=== PATIENT | female | born 1985 | race Caucasian/White ===

== ENCOUNTER 2018-05-14 21:23 | Emergency (ER) | payer OTHER ==
[~2018-05-14] VITALS: Ht 172.7 cm; Wt 86.4 kg
[~2018-05-14 21:23] MED LIST: DENIES MEDS
[2018-05-14 21:56] VITALS: Ht 172.7 cm; Wt 86.4 kg
[2018-05-15] MEDS ORDERED: SOD CHLORIDE 0.9% 1,000 ML IV STA (00:20)
[2018-05-15] MEDS ORDERED: ONDANSETRON 4 MG INJ IV STA (00:20)
[2018-05-15] MEDS ORDERED: morphine 2 MG INJ IV STA (00:20)
--- NOTE | 2018-05-15 01:13 | ERD ---
ER Documentation Chief Complaint Chief Complaint HERNIA PAIN 11/28 ROS All systems reviewed and are negative except as per history of present illness. Medications Home Meds Active Scripts Ranitidine Hcl* (Zantac*) 150 Mg Tablet, 150 MG PO BID PRN for EPIGASTRIC PAIN, #10 TAB Prov:EDILBERTO REYES MD 05/15/18 Acetaminophen* (Tylenol*) 325 Mg Tablet, 2 TAB PO Q8 PRN for PAIN AND OR ELEVATED TEMP, #20 TAB Prov:EDILBERTO REYES MD 05/15/18 Ciprofloxacin Hcl* (Ciprofloxacin Hcl*) 250 Mg Tablet, 250 MG PO BID for 7 Days, #14 TAB Prov:EDILBERTO REYES MD 05/15/18 Reported Medications [Denies Meds] No Conflict Check 06/20/10 Allergies Allergies: Coded Allergies: No Known Allergy (Verified , 06/20/10) PMhx/Soc History of Surgery: Yes ( x three; recent 03/16/12) Anesthesia Reaction: No Hx Neurological Disorder: No Hx Respiratory Disorders: No Hx Cardiac Disorders: No Hx Psychiatric Problems: No Hx Miscellaneous Medical Probl: Yes (ectopic; miscarriage) Hx Alcohol Use: No Hx Substance Use: No Hx Tobacco Use: No Smoking Status: Never smoker Physical Exam Vitals Vital Signs Date Temp Pulse Resp B/P (MAP) Pulse Ox O2 O2 Flow FiO2 Time Delivery Rate 05/15/18 98.1 79 18 109/63 98 Room Air 04:11 (78) 05/14/18 98.3 82 20 134/86 100 21:56 (102) Physical Exam Const: No acute distress Head: Atraumatic Eyes: Normal Conjunctiva ENT: Normal External Ears, Nose and Mouth. Neck: Full range of motion. No meningismus. Resp: Clear to auscultation bilaterally Cardio: Regular rate and rhythm, no murmurs Abd: Soft, non tender, non distended. Normal bowel sounds Skin: No petechiae or rashes Back: No midline or flank tenderness Ext: No cyanosis, or edema Neur: Awake and alert Psych: Normal Mood and Affect Result Diagram: 05/15/18 0027 05/15/18 0027 Results 24 hrs Laboratory Tests Test 05/15/18 00:27 05/15/18 02:06 05/15/18 02:08 White Blood Count 14.0 10^3/ul Red Blood Count 4.64 10^6/ul Hemoglobin 12.3 g/dl Hematocrit 38.8 % Mean Corpuscular Volume 83.6 fl Mean Corpuscular Hemoglobin 26.5 pg Mean Corpuscular 31.7 g/dl Hemoglobin Concent Red Cell Distribution Width 16.2 % Platelet Count 248 10^3/UL Mean Platelet Volume 12.5 fl Immature Granulocytes % 0.400 % Neutrophils % 82.6 % Lymphocytes % 11.2 % Monocytes % 5.2 % Eosinophils % 0.4 % Basophils % 0.2 % Nucleated Red Blood Cells % 0.0 /100WBC Immature Granulocytes # 0.060 10^3/ul Neutrophils # 11.5 10^3/ul Lymphocytes # 1.6 10^3/ul Monocytes # 0.7 10^3/ul Eosinophils # 0.1 10^3/ul Basophils # 0.0 10^3/ul Nucleated Red Blood Cells # 0.0 10^3/ul Sodium Level 139 mmol/L Potassium Level 3.5 mmol/L Chloride Level 99 mmol/L Carbon Dioxide Level 27 mmol/L Anion Gap 13 Blood Urea Nitrogen 8 mg/dl Creatinine 0.45 mg/dl Est Glomerular Filtrat Rate mL/min > 60 mL/min Glucose Level 141 mg/dl Calcium Level 9.5 mg/dl Total Bilirubin 0.3 mg/dl Direct Bilirubin 0.00 mg/dl Indirect Bilirubin 0.3 mg/dl Aspartate Amino Transf (AST/SGOT) 13 IU/L Alanine 14 IU/L Aminotransferase (ALT/SGPT) Alkaline Phosphatase 69 IU/L Total Protein 7.4 g/dl Albumin 4.3 g/dl Globulin 3.10 g/dl Albumin/Globulin Ratio 1.38 Lipase 42 U/L Bedside Urine pH (LAB) 7.5 Bedside Urine Protein (LAB) Negative Bedside Urine Glucose (UA) Negative Bedside Urine Ketones (LAB) Negative Bedside Urine Blood Negative Bedside Urine Nitrite (LAB) Positive Bedside Urine Leukocyte Esterase 1+ (L POC Beta HCG, Qualitative NEGATIVE Current Medications Medications Dose Sig/Christine Start Time Status Last (Trade) Ordered Route PRN Stop Time Admin Dose Reason Admin Sodium 1,000 ml @ Q1H STAT 05/15/18 DC 05/15/18 Chloride 1,000 mls/hr IV 00:20 00:31 05/15/18 01:19 Morphine 2 mg ONCE STAT 05/15/18 DC 05/15/18 Sulfate IV 00:20 00:31 (morphine) 05/15/18 00:22 Ondansetron 4 mg ONCE STAT 05/15/18 DC 05/15/18 HCl (Zofran IV 00:20 00:31 Inj) 05/15/18 00:22 Piperacillin 100 ml @ ONCE ONCE 05/15/18 DC 05/15/18 Sod/ 200 mls/hr IVPB 03:30 03:35 Tazobactam 05/15/18 03:59 Sod 2 tab ONCE ONCE 05/15/18 05/15/18 Acetaminophen PO 04:30 04:25 / 05/15/18 04:31 Hydrocodone Bitart ([place] (5/325)) Patient: PETERSON AREVALO : 1985 Age: 32 Sex: F MR #: [id number] DOS: 05/15/18 0020 Ordering MD: EDILBERTO REYES MD Location: [facility] Room/Bed: PROCEDURE: CT Abdomen and Pelvis without contrast. CLINICAL INDICATION: Abdominal pain. TECHNIQUE: Unenhanced CT scan of the abdomen and pelvis was performed on a multi-detector high-resolution CT scanner. Coronal and sagittal reformatted images were obtained from the axial source images. Images were reviewed on a high-resolution PACS workstation. The total exam CTDI equals 14.4 mGy and the total exam DLP equals 909.3 mGy-cm. DICOM images are available. One or more of the following dose reduction techniques were utilized: 1.) Automated exposure control 2.) Adjustment of the mA +/- kV according to patient's size 3.) Use of iterative reconstruction technique. COMPARISON: Abdominal and pelvic ultrasound exams 01/25/2018. FINDINGS: Evaluation of the soft tissues and viscera is limited in the absence of contrast. Partially visualized mild bibasilar pulmonary subsegmental atelectasis with calcified granuloma in the basilar lingula. Heart base appears normal. Systemic vasculature appears grossly normal. No pathologic lymphadenopathy identified by imaging criteria. Prominent right lower quadrant mesenteric lymph nodes measure up to 9 mm short axis (axial image 103), most likely reactive. Liver demonstrates normal size and contour, without identifiable focal mass lesion in the absence of intravenous contrast. Chronic post cholecystectomy changes without identifiable extrahepatic biliary ductal dilatation. Pancreas demonstrates normal contour, without identifiable peripancreatic inflammatory change. Spleen is normal in size. Adrenal glands appear normal. The stomach is moderately distended with heterogeneous contents, which may be physiologic related to recent ingestion or could reflect gastric outlet obstruction or gastroparesis. Mild dilatation of a few loops of distal ileum measuring up to 3.4 cm diameter in the ventral abdomen (axial image 73, coronal image 31) with transition point associated with segmental moderate wall thickening of the terminal ileum in the presence of mild - moderate associated mesenteric edema with mild free fluid layering in the adjacent mesenteries, bilateral pericolic gutters, the pelvis and a small fatty inferior ventral abdominal hernia. The appendix is nondilated. Multiple scattered left colonic diverticuli without evidence of acute diverticulitis. Kidneys demonstrate normal size, contour and orientation without identifiable focal mass lesion in the absence of intravenous contrast. No nephrolithiasis nor hydronephrosis. The ureters run unobstructed to an incompletely distended urinary bladder which is not well evaluated on today's exam, with suggestion of mild diffuse wall thickening which may reflect cystitis. The uterus appears age appropriate, containing a small amount of endometrial fluid. No pathologic adnexal mass identified in the absence of contrast. Osseous structures are intact with anatomic variant transitional lumbosacral anatomy with 6 non-rib bearing lumbar type vertebrae and presumed complete lumbarization of the S1 vertebra. Focally advanced spondylotic changes at L5-S1 contribute to effacement of bilateral subarticular recesses with moderate - severe bilateral neural foraminal stenosis, worse on the right, suboptimally evaluated by CT. Healed low transverse laparotomy wound. IMPRESSION: 1. Terminal ileitis, which may be infectious or inflammatory in etiology, with associated small bowel obstruction versus reactive ileus. 2. Moderate gastric distension may be physiologic related to recent ingestion or could reflect gastric outlet obstruction or gastroparesis. 3. Suggestion of mild diffuse urinary bladder wall thickening, which may be artifactual related to incomplete distension or could reflect cystitis. 4. No nephrolithiasis nor hydronephrosis. 5. Prominent right lower quadrant mesenteric lymph nodes which are most likely reactive. 6. Focally advanced spondylotic changes at the presumed L5 the S1 level contribute to effacement of bilateral subarticular recesses with moderate - severe bilateral neural foraminal stenosis, worse on the right. This can be better evaluated by MRI L-spine if clinically warranted. 7. Anatomic variant transitional lumbosacral anatomy with 6 non-rib bearing lumbar type vertebrae, presumed secondary to complete lumbarization of the S1 vertebra. If spinal surgery is to be performed, careful correlation for level with intraoperative plain films is recommended. RPTAT: HSAN Physician [place] Date Time Electronically viewed and signed by Cee Rangel Physician on 05/15/2018 03:15 Departure Diagnosis: Primary Impression: UTI (urinary tract infection) Additional Impression: Colitis Condition: Stable Additional Instructions: Thank you very much for allowing us to participate in your care. Your health and safety is our top priority at [facility]. Call your primary care doctor TOMORROW for an appointment during the next 2-4 days and bring all the information and medications prescribed. Have prescriptions filled and follow precisely the directions on the label. If the symptoms get worse and your provider is unavailable, return to the Emergency Department immediately. EDILBERTO REYES MD May 15, 2018 01:13
[2018-05-15] MEDS ORDERED: PIPER-TAZO 3.375 GM IV (PMX) 100 ML IVPB ONE (03:30)
[2018-05-15] MEDS ORDERED: CIPR-193 PO (03:57)
[2018-05-15] MEDS ORDERED: RANI150T35 PO (03:57)
[2018-05-15] MEDS ORDERED: ACET325T33 PO (03:57)
[2018-05-15 04:11] VITALS: BP 109/63; PULSE 79; RESP 18
[2018-05-15] MEDS ORDERED: HYDROCODONE/APAP (5/325) TAB PO ONE (04:30)
== END 2018-05-15 04:35 | disposition home or self-care (01) ==
LOC: FTE 21:23
DX: N39.0 Urinary tract infection, site not specified (principal); K52.9 Noninfective gastroenteritis and colitis, unspecified
CPT/HCPCS: 36415; 74176; 80053; 81003; 81025; 83690; 85025; 96374; 96375; J2270; J2405; J2543; J7030; Z7502; Z7610